=== PATIENT | male | born 1945 | race Caucasian/White ===

== ENCOUNTER → 2024-04-26 | Outpatient (CLI) | payer OTHER | END | disposition home or self-care (01) | LOC: SHCH 09:42 | PROVIDERS: ATTEND Student in an Organized Health Care Education/Training Program | DX: I87.2 Venous insufficiency (chronic) (peripheral) (principal); I82.629 Acute embolism and thrombosis of deep veins of unspecified upper extremity | CPT/HCPCS: 93970 ==

== ENCOUNTER → 2024-04-28 | Outpatient (CLI) | payer OTHER ==
[~2024-04-28] MED LIST: IOHEXOL-350 50ML VIAL IV ONE
--- NOTE | 2024-04-28 10:09 | HMCIMG ---
CT HEAD/BRAIN W/WO CONTRAST HISTORY: Quantitative communication deficits COMPARISON: None TECHNIQUE: Multiple sequential axial images of the head were obtained from the base of the skull through vertex. Patient was given 50 cc of Omnipaque through intravenous route. FINDINGS: The ventricles and extraventricular CSF spaces are dilated consistent with cerebral atrophy. Nonspecific white matter changes seen. There is no midline shift, mass effect or herniation. No acute intracranial bleed is seen. Visualized portion of the paranasal sinuses are grossly within normal limits. No mass lesion or abnormal enhancement is seen. IMPRESSION: 1. No acute intracranial bleed is seen. No mass lesion or abnormal enhancement is seen. CT was performed with one or more following dose reduction techniques: automated exposure control, adjustment of the mA and kv according to patient's size, or use of a iterative reconstruction technique.
== END | disposition home or self-care (01) ==
LOC: EDUNIT# 08:00 → RAH 08:12
PROVIDERS: ATTEND Student in an Organized Health Care Education/Training Program
DX: R41.841 Cognitive communication deficit (principal); I51.7 Cardiomegaly; R90.82 White matter disease, unspecified
CPT/HCPCS: 70470; Q9967

== ENCOUNTER 2024-06-19 05:49 | Day surgery (SDC) | payer OTHER ==
[2024-06-17 08:59] LABS: APPEARANCE,URINE CLEAR (CLEAR); BILIRUBIN,URINE NEGATIVE (NEGATIVE); COLOR,URINE YELLOW (YELLOW); GLUCOSE, URINE (UA) NEGATIVE (NEGATIVE); KETONES,URINE NEGATIVE (NEGATIVE); LEUKOCYTE ESTERASE ,URINE NEGATIVE Leu/uL (NEGATIVE); NITRATE,URINE NEGATIVE (NEGATIVE); OCCULT BLOOD,URINE NEGATIVE (NEGATIVE); PH,URINE 5.5 (5.0-8.0); PROTEIN,URINE NEGATIVE (NEGATIVE); UROBILINOGEN,URINE 0.2 mg/dL (0.2-1.0)
[2024-06-17 09:00] LABS: ADD UA MICROSCOPIC NO
[2024-06-17 09:00] LABS: BASOPHILS # (AUTO) 0.04 K/uL (0.00-0.20); BASOPHILS % (AUTO) 0.6 % (0.0-5.0); HEMATOCRIT 43.6 % (42-54); IMMATURE GRANULOCYTE ABSOLUTE 0.01 K/uL (0-1); LYMPHOCYTES # (AUTO) 1.3 K/uL (1.0-4.8); LYMPHOCYTES % (AUTO) 19.2 % (21.0-51.0); MEAN CORPUSCULAR HEMOGLOBIN 30.2 pg (27.0-33.0); MEAN CORPUSCULAR HGB CONC 33.3 g/dL (32.0-36.0); MEAN CORPUSCULAR VOLUME 90.8 fL (79-99); MONOCYTES # (AUTO) 0.5 K/uL (0.1-1.0); MONOCYTES % (AUTO) 7.9 % (3.0-13.0); NEUTROPHILS % (AUTO) 72.2 % (40.0-77.0); PLATELET COUNT (AUTO) 181 K/uL (130-400); RED CELL DISTRIBUTION WIDTH 13.2 % (11.0-15.5); WHITE BLOOD COUNT (AUTO) 6.9 K/uL (4.8-10.8)
[2024-06-17 09:02] VITALS: BP 127/64; PULSE 82; RESP 16; TEMP 97.7
[2024-06-17 09:06] LABS: INR 1.08 (0.85-1.15); PROTHROMBIN TIME 11.4 SEC (9.6-11.6)
[2024-06-17 09:08] LABS: PARTIAL THROMBOPLASTIN TIME 27.6 SEC (26.3-35.5)
[2024-06-17 09:22] LABS: B-TYPE NATRIURETIC PEPTIDE 13 pg/mL (0-100)
--- NOTE | 2024-06-17 09:27 | EKG ---
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
--- NOTE | 2024-06-17 09:58 | HMCIMG ---
PORTABLE CHEST RADIOGRAPH INDICATION: PRE OP COMPARISON: None FINDINGS: Heart size is normal. Mild calcific plaque is present along the aortic arch palmer. The pulmonary vascularity and asa appear normal. No abnormal pulmonary parenchymal opacity or consolidation identified. No significant pleural effusion noted. No pneumothorax detected. IMPRESSION: No radiographic evidence for any acute cardiopulmonary process.
[2024-06-17 10:10] LABS: CREATININE 0.8 mg/dL (0.5-1.3); POTASSIUM 4.1 mmol/L (3.5-5.1)
[2024-06-19] VITALS (9 sets, daily range): BP systolic 118–138; BP diastolic 54–72; PULSE 71–95; RESP 13–18; TEMP 97.5–97.7
[~2024-06-19] VITALS: Ht 185.4 cm; Wt 118.2 kg
[~2024-06-19 05:49] MED LIST changes: +AMLO-258 PO; +APIX5TAB PO; +CRAN250C2 PO; +CYAN1TAB44 PO; +CYCL30DR OS; +DULO60CA64 PO; +FURO20TA4 PO; -IOHEXOL-350 50ML VIAL IV ONE; +KETO15CR2 TP; +LISI40TA9 PO; +OMEP20CA12 PO; +TROS20TA4 PO
[2024-06-19] MEDS: 0.9%NACL 1000ML 1,000 ML IV SCH (06:37)
[2024-06-19] MEDS ORDERED: LIDOCAINE HCL 400MG/20ML VIAL ONE (07:10)
[2024-06-19] MEDS ORDERED: IODIXANOL 320 MG/ML 100 ML VIAL ONE (07:10)
[2024-06-19] MEDS ORDERED: NITROGLYCERIN 50MG VIAL ONE (07:11)
[2024-06-19] MEDS ORDERED: HEParin-NS 1,000 UNIT/500 ML 1,000 ML IV ONE (07:11)
[2024-06-19] MEDS ORDERED: HEParin 10,000 UNIT/10ML (1,000 UNIT/ML) VIAL ONE (07:12)
[2024-06-19] MEDS ORDERED: MIDAZOLAM HCL 1 MG/ML 2ML VIAL ONE ×3 (07:26→08:01)
[2024-06-19] MEDS ORDERED: FENTanyl CITRate PF 50 MCG/1 ML 2ML VIAL ONE (07:26)
--- NOTE | 2024-06-19 08:53 | PRN ---
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 We provided a total 4 mg of Versed and 75 mcg of fentanyl. We obtained ultrasound-guided access of the right popliteal vein we had significant difficulty advancing a micro wire. We attempted several times and due to his significant clot burden we are unable to aspirate venous return. We exchanged for a large bore needle with similar results and despite several attempts at advancing micro wires in 035 wires we are unable to confirm true lumen. Given this and falling multiple failed attempts the decision was made to terminate the procedure given his significant right popliteal DVT burden and inability to traverse a micro wire beyond the thrombus. A manual pressure was obtained for approximately 20 minutes. 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 Dirk acharya in 1-2 weeks post discharge AUGUSTUS Vazquez MD, MD Jun 19, 2024 08:53
[2024-06-19] MEDS ORDERED: DEXTROSE 50%-WATER 50 ML DISP.SYRIN IV PRN (09:00)
[2024-06-19] MEDS ORDERED: GLUCAGON 1MG KIT 1 MG ML IM PRN (09:00)
--- NOTE | 2024-06-19 09:30 | NUR ---
urinary: pt voided 625cc clear yellow urine per urinal without difficulty.
--- NOTE | 2024-06-19 10:45 | NUR ---
urinary: pt voided 425cc clear yellow color urine per urinal without difficulty
== END 2024-06-19 11:55 | disposition home or self-care (01) ==
LOC: DAH 05:49
PROVIDERS: ATTEND Student in an Organized Health Care Education/Training Program
DX: I82.4Z1 Acute embolism and thrombosis of unspecified deep veins of right distal lower extremity (principal); Z53.8 Procedure and treatment not carried out for other reasons; R22.41 Localized swelling, mass and lump, right lower limb; I10 Essential (primary) hypertension; E66.9 Obesity, unspecified; I73.9 Peripheral vascular disease, unspecified; I26.99 Other pulmonary embolism without acute cor pulmonale; R29.818 Other symptoms and signs involving the nervous system; Z79.899 Other long term (current) drug therapy; Z68.35 Body mass index [BMI] 35.0-35.9, adult
CPT/HCPCS: 71045; 80048; 83880; 85025; 85610; 85730; 81003; 36415; 93005; 36005; C1894 ×2; C1769 ×2; J3010; J3490 ×2; J7030; J2250 ×3; J1644; Q9967; A4215; A4222; A4221; A4663; A4216; A4606; A4223 ×3; 36140; 99156; 99157

== ENCOUNTER → 2025-03-16 | Outpatient (CLI) | payer OTHER ==
[~2025-03-16] MED LIST changes: -AMLO-258 PO; -APIX5TAB PO; -CRAN250C2 PO; -CYAN1TAB44 PO; -CYCL30DR OS; -DULO60CA64 PO; -FURO20TA4 PO; +IOHEXOL-350 75 ML VIAL IV ONE; -KETO15CR2 TP; -LISI40TA9 PO; -OMEP20CA12 PO; -TROS20TA4 PO
--- NOTE | 2025-03-30 20:07 | HMCIMG ---
STUDY CTA abdomen and pelvis with runoff to the lower extremities with intravenous contrast. HISTORY Peripheral vascular disease, unspecified. TECHNIQUE Axial CTA images of the abdomen, pelvis, and lower extremities were obtained in the arterial phase after intravenous contrast administration with multiplanar and three-dimensional reformations. COMPARISON None provided. FINDINGS Vasculature The abdominal aorta and its major visceral branches, including the celiac trunk, superior mesenteric artery, inferior mesenteric artery, and renal arteries, are patent without occlusion or hemodynamically significant stenosis. Mild calcific atherosclerotic plaque and sclerosis are present along the abdominal aorta and branching vessels without aneurysm or dissection. Bilateral common and external iliac, femoral, popliteal, and calf arteries are widely patent with preserved three-vessel runoff to the ankles and feet bilaterally and no flow-limiting stenosis, occlusion, or aneurysmal dilatation. Bilateral common iliac vein stents are in place with the expected position and contour. Lower thorax No basilar consolidation is seen in the imaged lower lungs. Calcified granulomas in the left lower lobe of the lung. Incidental intramuscular lipoma along the left latissimus dorsi muscle, measuring 4.5 x 8.5 x 9.0 cm. Adjacent to the left 9th and 10th ribs. Abdomen The liver is normal in size and enhancement with no focal mass; several tiny calcified splenic granulomata measuring 2 to 3 mm are present within an otherwise normal spleen. Gallbladder and bile ducts show no calcified gallstones or biliary ductal dilatation. The pancreas and adrenal glands are unremarkable. Kidneys are enhanced symmetrically without a solid mass, hydronephrosis, or hydroureter. Stomach and bowel loops show no obstruction, wall thickening, or CT evidence of acute diverticulitis. Appendix is normal. Pelvis The urinary bladder is unremarkable. Visualized reproductive structures are within normal limits for technique. No free intraperitoneal air or fluid and no pathologic lymphadenopathy are identified. Lower extremities (nonvascular structures) Soft tissues of the thighs and legs are unremarkable without focal fluid collection. Bilateral knee arthroplasty hardware is present with appropriate alignment and no apparent hardware-related complication or periprosthetic fracture. No acute osseous abnormality is identified. IMPRESSION Mild calcific atherosclerotic plaque involving the abdominal aorta and branching vessels with widely patent abdominal, pelvic, and bilateral lower extremity arteries, demonstrating preserved three-vessel runoff to the ankles and feet and no hemodynamically significant stenosis, occlusion, aneurysm, or dissection. Bilateral common iliac vein stents and bilateral knee arthroplasties in satisfactory position without apparent device-related complications. Incidental tiny calcified splenic granulomata within an otherwise normal spleen; no acute intra-abdominal, pelvic, or lower extremity soft tissue abnormality. /[place]
== END | disposition home or self-care (01) ==
LOC: RAH 08:28
PROVIDERS: ATTEND Student in an Organized Health Care Education/Training Program
DX: I70.203 Unspecified atherosclerosis of native arteries of extremities, bilateral legs (principal); I70.0 Atherosclerosis of aorta; Z96.653 Presence of artificial knee joint, bilateral
CPT/HCPCS: 75635; Q9967